=== PATIENT | female | born 1950 | race Caucasian/White ===

== ENCOUNTER 2021-05-21 10:42 | Emergency (ER) | payer MEDICARE ==
[~2021-05-21] VITALS: Ht 162.6 cm; Wt 70.3 kg
== END 2021-05-21 14:53 | disposition home or self-care (01) ==
LOC: ER 10:42
DX: L72.0 Epidermal cyst (principal); Z87.891 Personal history of nicotine dependence
CPT/HCPCS: 99282

== ENCOUNTER 2023-08-25 07:43 | Day surgery (SDC) | payer MEDICARE, OTHER ==
[~2023-08-25] VITALS: Ht 160 cm; Wt 75.1 kg
[2023-08-25] MEDS ORDERED: PROP10 PO (08:34)
[2023-08-25] MEDS ORDERED: EUTHYROX100 MC1 PO (08:36)
[2023-08-25] MEDS ORDERED: PROZAC2010 PO (08:36)
[2023-08-25] MEDS ORDERED: TRAZ50 PO (08:36)
[2023-08-25] MEDS ORDERED: LIPITOR80 MG PO (08:37)
[2023-08-25] MEDS ORDERED: AMLODIPINE BESYL5 MG PO (08:37)
--- NOTE | 2023-08-25 09:58 | NUR ---
[facility]/[address] [facility] [address] [facility]T PT REPORT OF HIVES AND EYE SWELLING AFTER CEPHALEXIN. DR BLANCO CHANGED ORDER TO CLINDAMYCIN 900 MG.
--- NOTE | 2023-08-25 10:25 | NUR ---
08/25/23 1025 Esperanza Echols A PILLOW UNDER HEAD, RIGHT HIP BUMP, ARMS SECURED ON PADDED ARM BOARDS.
[2023-08-25 12:47] VITALS: BP 103/83
== END 2023-08-25 12:45 | disposition home or self-care (01) ==
LOC: ORSCSDS 07:43
PROVIDERS: Podiatrist Foot & Ankle Surgery
PROC: 0Q8N0ZZ Division of Right Metatarsal, Open Approach (ICD-10-PCS; principal; 2023-08-25 09:15)
PROC: 0QSQ04Z Reposition Right Toe Phalanx with Internal Fixation Device, Open Approach (ICD-10-PCS; principal; 2023-08-25 09:15)
PROC: 0SGK04Z Fusion of Right Tarsometatarsal Joint with Internal Fixation Device, Open Approach (ICD-10-PCS; principal; 2023-08-25 09:15)
DX: M21.611 Bunion of right foot (principal); I10 Essential (primary) hypertension; E78.5 Hyperlipidemia, unspecified; E03.9 Hypothyroidism, unspecified; Z86.73 Personal history of transient ischemic attack (TIA), and cerebral infarction without residual deficits; Z79.899 Other long term (current) drug therapy
CPT/HCPCS: C1713; C1769; J0171; J1100; J1885; J2405; J2704; J2795; J3010; J7120